=== PATIENT | male | born 1960 | race Hispanic/Latino ===

== ENCOUNTER 2019-09-23 08:43 | Outpatient (CLI) | payer OTHER ==
--- NOTE | 2019-09-23 10:01 | XRay Report ---
CHEST 2 VIEWS INDICATION: COUGH. COMPARISON: None FINDINGS: Support devices: None. Heart: Within normal limits. Lungs/pleura: No acute air space or interstitial disease. No pneumothorax. Additional findings: None. IMPRESSION: No acute findings. Signer Name: Anshu Álvarez Jr, MD Signed: 09/23/2019 9:56 AM Workstation Name: [id number]
== END 2019-09-23 08:44 | disposition home or self-care (01) ==
LOC: SPVIMAG 08:43
PROVIDERS: ATTEND Family Medicine
DX: R05 Cough (principal)
CPT/HCPCS: 71046